=== PATIENT | female | born 1950 | race Caucasian/White ===

== ENCOUNTER 2021-03-30 11:10 | Emergency (ER) | payer MEDICARE, OTHER ==
[~2021-03-30] VITALS: Ht 177.8 cm; Wt 79.4 kg
== END 2021-03-30 13:17 | disposition home or self-care (01) ==
LOC: FSED 11:18
DX: S00.83XA Contusion of other part of head, initial encounter (principal); S13.4XXA Sprain of ligaments of cervical spine, initial encounter; S90.32XA Contusion of left foot, initial encounter; W01.198A Fall on same level from slipping, tripping and stumbling with subsequent striking against other object, initial encounter; Y93.01 Activity, walking, marching and hiking; Y92.002 Bathroom of unspecified non-institutional (private) residence as the place of occurrence of the external cause; I10 Essential (primary) hypertension; E03.9 Hypothyroidism, unspecified
CPT/HCPCS: 70450; 72125; 99283

== ENCOUNTER 2022-12-21 12:09 | Emergency (ER) | payer MEDICARE, OTHER ==
[~2022-12-21] VITALS: Ht 177.8 cm; Wt 87.1 kg
[2022-12-21 12:15] VITALS: O2SAT 95
[2022-12-21] MEDS ORDERED: CEPHALEXIN MONOHYDRATE 250 MG CAP PO SCH (12:30)
[2022-12-21] MEDS ORDERED: BACITRACIN ZINC 0.9GM TP ONE (12:30)
[2022-12-21] MEDS ORDERED: LIDOCAINE HCL 1% LOCAL INJ 20 ML VIAL INJ ONE (12:30)
[2022-12-21] MEDS ORDERED: CEPHALEXIN MONOHYDRATE 250 MG CAP ONE (12:30)
[2022-12-21] MEDS ORDERED: LIDOCAINE HCL 1% LOCAL INJ 20 ML VIAL ONE (12:30)
[2022-12-21] MEDS ORDERED: TETANUS/DIPHTHERIA TOX ADULT 0.5 ML SYR ONE (12:33)
[2022-12-21] MEDS ORDERED: TETANUS/DIPHTHERIA TOX ADULT 0.5 ML SYR IM ONE (12:45)
[2022-12-21] MEDS ORDERED: CEPHALEXIN500 MG PO (13:19)
[2022-12-22] MEDS ORDERED: BACITRACIN/POLYMYXIN 30 GM OINT TP SCH (09:00)
[2022-12-22] MEDS ORDERED: BACITRACIN ZINC 15 GM OINT TOP SCH (09:00)
[2022-12-30] MEDS ORDERED: CLEOCIN HCL300 MG PO (11:22)
== END 2022-12-21 13:32 | disposition home or self-care (01) ==
LOC: FSED 12:22
DX: S81.812A Laceration without foreign body, left lower leg, initial encounter (principal); W01.198A Fall on same level from slipping, tripping and stumbling with subsequent striking against other object, initial encounter; Y93.01 Activity, walking, marching and hiking; Y92.89 Other specified places as the place of occurrence of the external cause; I10 Essential (primary) hypertension; E03.9 Hypothyroidism, unspecified
CPT/HCPCS: 12002; 90471; 90714; 99283; J2001

== ENCOUNTER 2023-01-10 10:08 | Outpatient (RCR) | payer MEDICARE, OTHER ==
[~2023-01-10 10:08] MED LIST: CEPHALEXIN500 MG PO; CLEOCIN HCL300 MG PO
== END 2023-01-12 ==
LOC: WCC 10:08
PROVIDERS: ATTEND Nurse Practitioner Family
DX: S81.802A Unspecified open wound, left lower leg, initial encounter (principal)

== ENCOUNTER 2024-10-29 11:38 | Emergency (ER) | payer MEDICARE, OTHER ==
[~2024-10-29] VITALS: Ht 177.8 cm; Wt 74.6 kg
[2024-10-29] MEDS ORDERED: AZITHROMYCIN250 MG PO (12:32)
[2024-10-29] MEDS ORDERED: TRIAMTERENE-HCTZ1 EA PO (12:34)
[2024-10-29] MEDS ORDERED: LATANOPROST2.5 ML OP (12:34)
[2024-10-29] MEDS ORDERED: BYSTOLIC10 MG PO (12:34)
[2024-10-29] MEDS: DEXAMETHASONE SOD PHOS INJ 4 MG/ML SDV INJ ONE (12:50)
[2024-10-29 12:58] VITALS: PULSE 54; RESP 14; TEMP 97.3; O2SAT 100
== END 2024-10-29 12:58 | disposition home or self-care (01) ==
LOC: FSED 12:09
DX: J01.90 Acute sinusitis, unspecified (principal); I12.9 Hypertensive chronic kidney disease with stage 1 through stage 4 chronic kidney disease, or unspecified chronic kidney disease; N18.9 Chronic kidney disease, unspecified; E03.9 Hypothyroidism, unspecified; M06.9 Rheumatoid arthritis, unspecified; H40.9 Unspecified glaucoma; Z96.653 Presence of artificial knee joint, bilateral
CPT/HCPCS: 96372; 99283; J1100